=== PATIENT | male | born 1950 | race Two or more races ===

== ENCOUNTER 2022-10-27 16:24 | Emergency (ER) | payer OTHER ==
[~2022-10-27] VITALS: Ht 167.6 cm; Wt 88.0 kg
== END 2022-10-27 20:50 | disposition home or self-care (01) ==
LOC: ER 16:24 → EMR PED 16:24 → ER 16:41 → EMR PED 16:41 → ER 20:50
DX: K52.9 Noninfective gastroenteritis and colitis, unspecified (principal)